=== PATIENT | male | born 1990 | race Two or more races ===

== ENCOUNTER 2017-03-04 15:35 | Emergency (ER) | payer OTHER ==
--- NOTE | 2017-03-04 15:37 | EDM.PDOC ---
ED HPI GENERAL MEDICAL PROBLEM - General Stated Complaint: LACERATION RT ARM/HAND Time Seen by Provider: 03/04/17 15:36 - History of Present Illness INITIAL COMMENTS - FREE TEXT/NARRATIVE: HISTORY AND PHYSICAL: History of present illness: Patient 26-year-old male presents with concern of acute right upper extremity injury when his arm was caught in a conveyor belt he sustained multiple abrasions to his hand denies other trauma he denies up-to-date tetanus Review of systems: As per history of present illness and below otherwise all systems reviewed and negative. Past medical history: As per history of present illness and as reviewed below otherwise noncontributory. Surgical history: As per history of present illness and as reviewed below otherwise noncontributory. Social history: No reported history of drug or alcohol abuse. Family history: As per history of present illness and as reviewed below otherwise noncontributory. Physical exam: HEENT: Atraumatic, normocephalic, pupils reactive, negative for conjunctival pallor or scleral icterus, mucous membranes moist, throat clear, neck supple, nontender, trachea midline. Lungs: Clear to auscultation, breath sounds equal bilaterally, chest nontender. Heart: S1S2, regular, negative for clicks, rubs, or JVD. Abdomen: Soft, nondistended, nontender. Negative for masses or hepatosplenomegaly. Negative for costovertebral tenderness. Pelvis: Stable nontender. Genitourinary: Deferred. Rectal: Deferred. Extremities: Patient has multiple minor abrasions on the dorsal aspect of his right hand there is no gross deformity no bony tenderness see medicine neurovascular exams unremarkable Neuro: Awake, alert, oriented. Cranial nerves II through XII unremarkable. Cerebellum unremarkable. Motor and sensory unremarkable throughout. Exam nonfocal. Diagnostics: X-ray right forearm/hand Therapeutics: 0.5 TDI Impression: #1 acute injury right upper extremity #2 multiple abrasions/contusion Definitive disposition and diagnosis as appropriate pending reevaluation and review of above. Right Hand Pain Score (Numeric/FACES): 5 - Related Data Allergies Allergy/AdvReac Type Severity Reaction Status Date / Time No Known Allergies Allergy Verified 03/04/17 16:00 Home Meds: Home Meds . [No Known Home Meds] 10/10/14 [History] Past Medical History - Past Health History Medical/Surgical History: Denies Medical/Surgical History Social & Family History - Tobacco Use Smoking Status *Q: Never Smoker - Alcohol Use Days Per Week of Alcohol Use: 0 - Recreational Drug Use Recreational Drug Use: Yes Drug Use in Last 12 Months: Yes Recreational Drug Type: Reports: Marijuana/Hashish ED ROS GENERAL - Review of Systems Review Of Systems: ROS reveals no pertinent complaints other than HPI. ED EXAM, GENERAL - Physical Exam Exam: See Below (See dictation) Course - Vital Signs Last Recorded V/S: Last Vital Signs Temp 36.4 C 03/04/17 15:41 Pulse 81 03/04/17 15:41 Resp 18 03/04/17 15:41 BP 144/88 H 03/04/17 15:41 Pulse Ox 16 L 03/04/17 15:41 - Orders/Labs/Meds Orders: Active Orders 24 hr Category Date Time Status Vaccines to be Administered [RC] PER UNIT ROUTINE Care 03/04/17 15:41 Active Forearm 2V Rt [CR] Stat Exams 03/04/17 15:40 Taken Hand 2V Rt [CR] Stat Exams 03/04/17 15:40 Ordered Meds: Medications Discontinued Medications Generic Name Dose Route Start Last Admin Trade Name Freq PRN Reason Stop Dose Admin Diphtheria/Tetanus/Acell Pertussis 0.5 ml 03/04/17 15:41 Adacel IM 03/04/17 15:42 .ONCE ONE Departure - Departure Time of Disposition: 16:06 Disposition: Home, Self-Care 01 Condition: Good Clinical Impression: Hand injury, Abrasion, Contusion - Discharge Information Additional Instructions: The following information is given to patients seen in the emergency department who are being discharged to home. This information is to outline your options for follow-up care. We provide all patients seen in our emergency department with a follow-up referral. The need for follow-up, as well as the timing and circumstances, are variable depending upon the specifics of your emergency department visit. If you don't have a primary care physician on staff, we will provide you with a referral. We always advise you to contact your personal physician following an emergency department visit to inform them of the circumstance of the visit and for follow-up with them and/or the need for any referrals to a consulting specialist. The emergency department will also refer you to a specialist when appropriate. This referral assures that you have the opportunity for followup care with a specialist. All of these measure are taken in an effort to provide you with optimal care, which includes your followup. Under all circumstances we always encourage you to contact your private physician who remains a resource for coordinating your care. When calling for followup care, please make the office aware that this follow-up is from your recent emergency room visit. If for any reason you are refused follow-up, please contact the [facility] emergency department at and asked to speak to the emergency department charge nurse. Follow-up primary medical doctor 1-2 days return as needed as discussed Motrin or Tylenol as directed - My Orders Last 24 Hours: My Active Orders 03/04/17 15:40 Forearm 2V Rt [CR] Stat Hand 2V Rt [CR] Stat 03/04/17 15:41 Vaccines to be Administered [RC] PER UNIT ROUTINE - Assessment/Plan Last 24 Hours: My Active Orders 03/04/17 15:40 Forearm 2V Rt [CR] Stat Hand 2V Rt [CR] Stat 03/04/17 15:41 Vaccines to be Administered [RC] PER UNIT ROUTINE
[2017-03-04] MEDS ORDERED: Diphtheria,Pertussis(Acell),Tetanus Vaccine 0.5 ML Syringe IM ONE (15:41)
[2017-03-04 17:33] VITALS: BP 136/72
--- NOTE | 2017-03-05 17:23 | CR ---
EXAM DATE: 03/04/17 PATIENT'S AGE: 26 Patient: ARMIDA CARBAJAL Facility: [place], [place] Site . Site : 1990 Study: XRay Extremity Right forearm [id number]/2/2017 4:02:48 PM Ordering Physician: Christofer Edmonds Final Report: TECHNIQUE: Two views of the right forearm. INDICATION: Forearm injury, pain. FINDINGS: No acute right forearm fracture. No radiopaque foreign body. Wrist and elbow appear grossly intact. Postop changes in the scaphoid bone. Dictated by Zbigniew Albert MD @ 03/04/2017 4:21:12 PM Dictated by: Zbigniew Albert MD @ 03/04/2017 16:21:15 (Electronic Signature) Report Signed by Proxy. [facility]ONS[facility] HOSPITALEnrique
--- NOTE | 2017-03-05 17:24 | CR ---
EXAM DATE: 03/04/17 PATIENT'S AGE: 26 Patient: ARMIDA CARBAJAL Facility: [place], [place] Site . Site : 1990 Study: XRay Extremity Right hand [id number]/2/2017 4:03:15 PM Ordering Physician: Christofer Edmonds Final Report: INDICATION: Hand pain and injury. TECHNIQUE: Two views right hand. COMPARISON: None Findings and impression: Single screw fixation of the scaphoid noted. There is subtle transverse lucency in the midportion of the scaphoid which may represent partial nonunion. Evaluation is limited without scaphoid views. Recommend comparison to prior radiograph. No acute fracture identified. No dislocation. Minimal ulnar negative variance. No suspicious bone lesions. No significant soft tissue abnormality. Dictated by Keenan Ramirez MD @ 03/04/2017 4:26:34 PM Dictated by: Keenan Ramirez MD @ 03/04/2017 16:26:51 (Electronic Signature) Report Signed by Proxy. THIEN
== END 2017-03-04 17:33 | disposition home or self-care (01) ==
LOC: MW.ED 15:35
DX: S60.511A Abrasion of right hand, initial encounter (principal); W23.1XXA Caught, crushed, jammed, or pinched between stationary objects, initial encounter
CPT/HCPCS: 73090-26-RT; 73090-RT; 73120-26-RT; 73120-RT; 90471; 90715; 99282; 99283-25

== ENCOUNTER 2017-05-08 12:02 | Emergency (ER) | payer OTHER ==
[2017-05-08] MEDS ORDERED: Ketorolac 60 MG/2 ML SDV IM ONE (12:27)
--- NOTE | 2017-05-08 12:57 | EDM.PDOC ---
<Darian Morocho - Last Filed: 05/08/17 13:32> ED HPI GENERAL MEDICAL PROBLEM - General Chief Complaint: Lower Extremity Injury/Pain Stated Complaint: RIGHT KNEE PAIN Time Seen by Provider: 05/08/17 12:25 Source of Information: Reports: Patient History Limitations: Reports: No Limitations - History of Present Illness INITIAL COMMENTS - FREE TEXT/NARRATIVE: History of present illness: 26-year-old male comes in with right knee pain with erythema and and edema. 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 Review of systems: As per history of present illness and below otherwise all systems reviewed and negative. Past medical history: As per history of present illness and as reviewed below otherwise noncontributory. Surgical history: As per history of present illness and as reviewed below otherwise noncontributory. Social history: No reported history of drug or alcohol abuse. Family history: As per history of present illness and as reviewed below otherwise noncontributory. Physical exam: HEENT: Atraumatic, normocephalic, pupils reactive, negative for conjunctival pallor or scleral icterus, mucous membranes moist, throat clear, neck supple, nontender, trachea midline. Lungs: Clear to auscultation, breath sounds equal bilaterally, chest nontender. Heart: S1S2, regular, negative for clicks, rubs, or JVD. Abdomen: Soft, nondistended, nontender. Negative for masses or hepatosplenomegaly. Negative for costovertebral tenderness. Pelvis: Stable nontender. Genitourinary: Deferred. Rectal: Deferred. Extremities: Right knee noted to be edematous, slightly warm with generalized erythema over the patellar region, negative for cords or calf pain. Neurovascular unremarkable. Neuro: Awake, alert, oriented. Cranial nerves II through XII unremarkable. Cerebellum unremarkable. Motor and sensory unremarkable throughout. Exam nonfocal. Diagnostics: [X-ray right knee, CBC, CMP, uric acid] Therapeutics: [] Impression: [Knee pain] Plan: [Antibiotics and OTC pain meds] Definitive disposition and diagnosis as appropriate pending reevaluation and review of above. Right Knee Pain Score (Numeric/FACES): 5 - Related Data Allergies Allergy/AdvReac Type Severity Reaction Status Date / Time No Known Allergies Allergy Verified 03/04/17 16:00 Home Meds: Home Meds Cephalexin [Keflex] 500 mg PO Q6HR #40 cap 05/08/17 [Rx] Past Medical History - Past Health History Medical/Surgical History: Denies Medical/Surgical History Other Musculoskeletal History: fracture, right wrist Social & Family History - Family History Family Medical History: Noncontributory - Tobacco Use Smoking Status *Q: Current Some Day Smoker Years of Tobacco use: 2 Packs/Tins Daily: 0.1 - Caffeine Use Caffeine Use: Reports: Energy Drinks Caffeine Use Comment: "sometimes" - Alcohol Use Days Per Week of Alcohol Use: 0 - Recreational Drug Use Recreational Drug Use: No Drug Use in Last 12 Months: Yes Recreational Drug Type: Reports: Marijuana/Hashish Review of Systems - Review of Systems Review Of Systems: See Below (See history of present illness) ED EXAM, GENERAL - Physical Exam Exam: See Below (See history of present illness) Course - Vital Signs Last Recorded V/S: Last Vital Signs Temp 36.7 C 05/08/17 12:22 Pulse 85 05/08/17 12:22 Resp 18 05/08/17 12:22 BP 120/66 05/08/17 12:22 Pulse Ox 98 05/08/17 12:22 - Orders/Labs/Meds Labs: Laboratory Tests 05/08/17 05/08/17 Range/Units 12:36 12:36 WBC 9.33 (4.0-11.0) K/uL RBC 4.96 (4.50-5.90) M/uL Hgb 14.4 (13.0-17.0) g/dL Hct 43.1 (38.0-50.0) % MCV 86.9 (80.0-98.0) fL MCH 29.0 (27.0-32.0) pg MCHC 33.4 (31.0-37.0) g/dL RDW Std Deviation 42.6 (28.0-62.0) fl RDW Coeff of Mora 14 (11.0-15.0) % Plt Count 273 (150-400) K/uL MPV 10.70 (7.40-12.00) fL Neut % (Auto) 70.0 (48.0-80.0) % Lymph % (Auto) 15.0 L (16.0-40.0) % Bay % (Auto) 7.7 (0.0-15.0) % Eos % (Auto) 6.8 (0.0-7.0) % Baso % (Auto) 0.5 (0.0-1.5) % Neut # (Auto) 6.5 H (1.4-5.7) K/uL Lymph # (Auto) 1.4 (0.6-2.4) K/uL Bay # (Auto) 0.7 (0.0-0.8) K/uL Eos # (Auto) 0.6 (0.0-0.7) K/uL Baso # (Auto) 0.1 (0.0-0.1) K/uL Nucleated RBC % 0.0 /100WBC Nucleated RBCs # 0 K/uL Sodium 142 (136-146) mmol/L Potassium 4.0 (3.5-5.1) mmol/L Chloride 107 (98-110) mmol/L Carbon Dioxide 27 (21-31) mmol/L BUN 8 (6.0-23.0) mg/dL Creatinine 0.8 (0.6-1.5) mg/dL Est Cr Clr Drug Dosing 150.34 mL/min Estimated GFR (MDRD) > 60.0 ml/min Glucose 82 (60-110) mg/dL Uric Acid 5.9 (2.1-7.4) mg/dL Calcium 9.2 (8.8-10.8) mg/dL Total Bilirubin 0.5 (0.1-1.5) mg/dL AST 24 (5-40) IU/L ALT 29 (8-54) IU/L Alkaline Phosphatase 115 (40-150) Total Protein 6.6 (6.0-8.0) g/dL Albumin 4.0 (3.5-5.0) g/dL Globulin 2.6 (2.0-3.5) g/dL Albumin/Globulin Ratio 1.5 (1.3-2.8) Meds: Medications Discontinued Medications Generic Name Dose Route Start Last Admin Trade Name Freq PRN Reason Stop Dose Admin Ketorolac Tromethamine 60 mg 05/08/17 12:27 05/08/17 12:37 Toradol IM 05/08/17 12:28 60 mg ONETIME ONE Administration Departure - Departure Time of Disposition: 13:33 Disposition: Home, Self-Care 01 Condition: Good Clinical Impression: Knee pain, Cellulitis - Discharge Information Prescriptions: Cephalexin [Keflex] 500 mg PO Q6HR #40 cap Instructions: Knee Pain, Cellulitis, Adult Referrals: PCP,None [Primary Care Provider] - Forms: ED Department Discharge Additional Instructions: The following information is given to patients seen in the emergency department who are being discharged to home. This information is to outline your options for follow-up care. We provide all patients seen in our emergency department with a follow-up referral. The need for follow-up, as well as the timing and circumstances, are variable depending upon the specifics of your emergency department visit. If you don't have a primary care physician on staff, we will provide you with a referral. We always advise you to contact your personal physician following an emergency department visit to inform them of the circumstance of the visit and for follow-up with them and/or the need for any referrals to a consulting specialist. The emergency department will also refer you to a specialist when appropriate. This referral assures that you have the opportunity for follow-up care with a specialist. All of these measure are taken in an effort to provide you with optimal care, which includes your follow-up. Under all circumstances we always encourage you to contact your private physician who remains a resource for coordinating your care. When calling for follow-up care, please make the office aware that this follow-up is from your recent emergency room visit. If for any reason you are refused follow-up, please contact the [facility] Emergency Department at and asked to speak to the emergency department charge nurse. Take medication as directed He may take ibuprofen 800 mg every 6 hours as needed for pain Follow-up with primary care provider once 2 days return to ED as needed as discussed <Leticia Mirza - Last Filed: 05/08/17 15:27> ED HPI GENERAL MEDICAL PROBLEM - History of Present Illness INITIAL COMMENTS - FREE TEXT/NARRATIVE: Please note that I was asked to personally see this patient which I did and personally evaluated his right knee. I agree with exam as above and did feel that the erythema and warmth was very ill-defined but there was no joint tenderness joint effusion or decreased range of motion appreciated and the patient was able to ambulate. 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 There is no calf tenderness or any erythema distally and there is no streaking up the leg. Labs performed as was an x-ray and the patient was paced on antibiotics as a cellulitis of the right knee.0
[2017-05-08 13:10] LABS: CHLORIDE,CL 107 mmol/L (98-110); SODIUM,NA 142 mmol/L (136-146)
--- NOTE | 2017-05-08 13:30 | CR ---
EXAMINATION: Right knee HISTORY: Erythema COMPARISON: None TECHNIQUE: 4 views FINDINGS: There is moderate prepatellar soft tissue thickening without an underlying joint effusion. There is no acute osseous abnormality, dislocation, or fracture.. Joint spaces are preserved. IMPRESSION: Moderate prepatellar soft tissue thickening.
[2017-05-08 16:20] VITALS: BP 121/64
== END 2017-05-08 13:42 | disposition home or self-care (01) ==
LOC: MW.ED 12:02
DX: L03.115 Cellulitis of right lower limb (principal); F17.210 Nicotine dependence, cigarettes, uncomplicated
CPT/HCPCS: 36415; 73562; 80053; 84550; 85025; 96372; 99283; J1885